=== PATIENT | male | born 1990 | race Caucasian/White ===

== ENCOUNTER → 2020-01-13 11:00 | Outpatient (BNVA) | payer OTHER, SELFPAY | PROVIDERS: Family Provider Nurse Practitioner Family; PCP Nurse Practitioner Family; Visit Provider Nurse Practitioner Family | DX: D64.9 Anemia, unspecified (principal); F41.9 Anxiety disorder, unspecified; F32.9 Major depressive disorder, single episode, unspecified; Z77.011 Contact with and (suspected) exposure to lead; E55.9 Vitamin D deficiency, unspecified; Z13.6 Encounter for screening for cardiovascular disorders; Z79.899 Other long term (current) drug therapy | CPT/HCPCS: 80053; 80061; 81001; 82306; 82607; 82746; 83036; 83655; 84443; 85025 ==

== ENCOUNTER → 2020-10-04 10:13 | Outpatient (BNVA) | payer SELFPAY | PROVIDERS: Family Provider Nurse Practitioner Family; PCP Nurse Practitioner Family; Visit Provider Nurse Practitioner Family | DX: S49.91XA Unspecified injury of right shoulder and upper arm, initial encounter (principal); X58.XXXA Exposure to other specified factors, initial encounter | CPT/HCPCS: 73030 ==

== ENCOUNTER → 2022-10-17 09:17 | Outpatient (BNVA) | payer BC, SELFPAY | PROVIDERS: Family Provider Nurse Practitioner Family; PCP Nurse Practitioner; Visit Provider Nurse Practitioner | DX: K92.0 Hematemesis (principal) | CPT/HCPCS: 80053; 85025 ==

== ENCOUNTER → 2022-11-06 11:35 | Outpatient (BNVA) | payer BC, SELFPAY | PROVIDERS: Family Provider Nurse Practitioner Family; PCP Nurse Practitioner; Visit Provider Nurse Practitioner | DX: K92.0 Hematemesis (principal) | CPT/HCPCS: 85025 ==

== ENCOUNTER 2025-05-20 10:19 | Emergency (ER) | payer SELFPAY ==
[2025-05-20 10:20] VITALS: BP 131/99; PULSE 81; RESP 18; TEMP 36.5; O2SAT 99
--- NOTE | 2025-05-20 10:20 | W.ED.NAVMDI ---
HPI - Nausea/Vomiting/Diarrhea General: Chief complaint: Abdominal Pain Stated complaint: N/V/D History of Present Illness: 34-year-old male with a history of alcohol abuse who presents emergency room with nausea and vomiting for the last several days. He is having epigastric pain and cannot keep anything down. This been going on for 5 or 6 days now. He says he thinks he might of had pancreatitis in the past. No diarrhea. No altered mental status. No focal motor deficits Related Data Home Medications ?Medication ?Instructions ?Recorded ?Confirmed acamprosate 333 mg tablet,delayed 666 mg PO TID 05/20/25 05/20/25 release omeprazole 40 mg capsule,delayed 40 mg PO BID 05/20/25 05/20/25 release sucralfate 100 mg/mL oral 10 ml PO QID 05/20/25 05/20/25 suspension Previous Rx's ?Medication ?Instructions ?Recorded famotidine 40 mg tablet 40 mg PO DAILY #7 tabs 05/20/25 ondansetron 8 mg disintegrating 8 mg PO Q6H #14 tabs 05/20/25 tablet promethazine 25 mg rectal 25 mg [place] Q6H PRN nausea and 05/20/25 suppository vomiting #12 ea sucralfate 1 gram tablet (Carafate) 1 g PO TID 4 weeks #84 tabs 05/20/25 Allergies Allergy/AdvReac Type Severity Reaction Status Date / Time Penicillins Allergy Intermediate rash Verified 08/14/23 08:24 Sulfa (Sulfonamide Allergy ADR-Abdominal Verified 08/14/23 08:24 Antibiotics) Pain Review of Systems Narrative: Constitutional symptoms: Negative except as documented in HPI. Skin symptoms: Negative except as documented in HPI. Eye symptoms: Negative except as documented in HPI. ENMT symptoms: Negative except as documented in HPI. Respiratory symptoms: Negative except as documented in HPI. Cardiovascular symptoms: Negative except as documented in HPI. Gastrointestinal symptoms: Negative except as documented in HPI. Genitourinary symptoms: Negative except as documented in HPI. Musculoskeletal symptoms: Negative except as documented in HPI. Neurologic symptoms: Negative except as documented in HPI. Psychiatric symptoms: Negative except as documented in HPI. Endocrine symptoms: Negative except as documented in HPI. [facility] ED PFSH: Medical History (Updated 05/20/25 @ 12:37 by Ashley Altman MD) Shoulder injury Vitamin D deficiency Fatigue Lead exposure risk assessment, high risk Anemia Family History Unknown No problems noted. Social History Smoking and tobacco/nicotine status: current every day tobacco/nicotine user Quit status (tobacco/nicotine): not considering quitting Second hand smoke exposure: Yes Substance/Drug Use: never Physical Exam Narrative: EXAM NARRATIVE: General: Alert, no acute distress. Skin: Warm, dry. Head: Normocephalic, atraumatic. Neck: Supple, trachea midline. Eye: Extraocular movements are intact. Ears, nose, mouth and throat: Tacky oral mucosa Cardiovascular: Regular, Normal peripheral perfusion. Respiratory: Lungs are clear to auscultation, respirations are non-labored, breath sounds are equal, Symmetrical chest wall expansion. Gastrointestinal: Soft, tender epigastric area, Non distended Musculoskeletal: Normal ROM, no deformity. Neurological: Alert and oriented, No focal neurological deficit observed. Psychiatric: Cooperative, appropriate mood & affect. Course Vital Signs: Vital signs: Vital Signs Temperature 97.7 F 05/20/25 10:20 Pulse Rate 86 05/20/25 12:53 Respiratory Rate 18 05/20/25 12:53 Blood Pressure 141/90 05/20/25 12:53 Pulse Oximetry 99 05/20/25 12:53 Oxygen Delivery Me thod Room Air 05/20/25 10:20 MDM - Nausea/Vomiting/Diarrhea Medical Decision Making Medical decision making Patient's reason for coming to the emergency room: Vomiting and epigastric pain Social determinants: Unemployed I reviewed the patient's medical record. No chronic illness. I reviewed the patient's current home meds Alternate historians: None Differential diagnosis for this patient with nausea and vomiting including but not limited to and based on the above HPI, review of systems and physical exam: Urinary tract infection. Appendicitis. Cholecystitis. Colitis. small bowel obstruction. crohn's flare. pancreatitis. gastritis. peptic ulcer. cyclic vomiting. Viral illness. Influenza. COVID. Orders placed to evaluate differential diagnosis based on the above differential, HPI and physical exam. In this patient with alcoholism would have most concern for alcoholic gastritis or pancreatitis. Lab Review: Laboratory results were reviewed and interpreted by myself the emergency room physician. No leukocytosis. No anemia. No renal failure. Urinalysis was negative for infection and negative for blood. He did peer concentrated. Potassium was low. This is being replaced. CT of the abdomen pelvis with contrast: No acute process. This was reviewed and interpreted by myself the emergency room physician. I also reviewed the radiology report. Reexamination: Patient remained stable. No increased work of breathing. No altered mental status. No focal motor deficits. Assessment and plan: Nausea and vomiting Dehydration Epigastric pain ?IV fluids and IV Zofran. IV Protonix - Discharged home - Discussed plan with patient. Answered any questions. - Evaluation and treatment of this problem were appropriate in the emergency setting. Lab Data 05/20/25 10:40 05/20/25 10:40 Radiology Impressions Abdomen/Pelvis CT 05/20/25 11: IMPRESSION: 1. Portions of the colon are collapsed and mural thickening could be present. Correlate clinically for the possibility of colitis. 2. Hepatic steatosis. 3. No acute disease otherwise identified. Laboratory Results WBC 7.78 10^3/uL (3.29-11.43) 05/20/25 10:40 RBC 5.58 10^6/uL (3.85-5.65) 05/20/25 10:40 Hgb 17.30 g/dL (11.27-16.99) H 05/20/25 10:40 Hct 46.8 % (37-53) 05/20/25 10:40 MCV 83.9 fl (82-101) 05/20/25 10:40 MCH 31.0 pg (27-33) 05/20/25 10:40 MCHC 37.0 g/dL (30-55) 05/20/25 10:40 RDW 12.3 % (12.1-15.1) 05/20/25 10:40 Plt Count 162 10^3/cmm (157-399) 05/20/25 10:40 MPV 9.6 fL (7.4-10.4) 05/20/25 10:40 Neut % (Auto) 83.7 % 05/20/25 10:40 Lymph % (Auto) 11.4 % 05/20/25 10:40 Boundary % (Auto) 4.1 % 05/20/25 10:40 Eos % (Auto) 0.1 % 05/20/25 10:40 Baso % (Auto) 0.3 % 05/20/25 10:40 Neut # (Auto) 6.51 10^3/uL (1.8-7.7) 05/20/25 10:40 Lymph # (Auto) 0.9 10^3/uL (0.8-4.8) 05/20/25 10:40 Boundary # (Auto) 0.3 10^3/uL (0.2-0.9) 05/20/25 10:40 Eos # (Auto) 0.0 10^3/uL (0.0-0.8) 05/20/25 10:40 Baso # (Auto) 0.0 10^3/uL (0.0-0.1) 05/20/25 10:40 Nucleated RBC % (auto) 0 % 05/20/25 10:40 Nucleated RBCs # 0.0 /100WBC 05/20/25 10:40 Sodium 136 mmol/L (136-145) 05/20/25 10:40 Potassium 2.7 mmol/L (3.5-5.1) L* 05/20/25 10:40 Chloride 90 mmol/L (98-107) L 05/20/25 10:40 Carbon Dioxide 30 mmol/L (22-29) H 05/20/25 10:40 Anion Gap 18.7 (5-19) 05/20/25 10:40 BUN 5 mg/dL (6-20) L 05/20/25 10:40 Creatinine 0.7 mg/dL (0.7-1.2) 05/20/25 10:40 GFR Calculation 128.3 mL/min (90-130) 05/20/25 10:40 Glucose 130 mg/dL (65-115) H 05/20/25 10:40 Calculated Osmolality 281 mOsm/kg (285-295) L 05/20/25 10:40 Lactic Acid 2.6 mmol/L (0.5-2.2) H 05/20/25 10:40 Calcium 8.9 mg/dL (8.5-10.5) 05/20/25 10:40 Total Bilirubin 3.0 mg/dL (0.15-1.2) H 05/20/25 10:40 AST 36 U/L (0-40) 05/20/25 10:40 ALT 22 U/L (0-41) 05/20/25 10:40 Alkaline Phosphatase 144 U/L (40-130) H 05/20/25 10:40 C-Reactive Protein 3.0 mg/L (0.0-4.9) 05/20/25 10:40 Total Protein 6.2 g/dL (6.6-8.7) L 05/20/25 10:40 Albumin 4.2 g/dL (3.5-5.2) 05/20/25 10:40 Globulin 2.0 g/dL (1.3-4.6) 05/20/25 10:40 Lipase 36 U/L (13-60) 05/20/25 10:40 Urine Color [place] (Yellow) A 05/20/25 12:50 Urine Appearance Clear (CLEAR) 05/20/25 12:50 Urine pH 8.0 (5-7) A 05/20/25 12:50 Ur Specific [place] 1.073 (1.005-1.030) H 05/20/25 12:50 Urine Protein 1+ (Negative) A 05/20/25 12:50 Urine Glucose (UA) Negative (Normal) 05/20/25 12:50 Urine Ketones Trace (Negative) 05/20/25 12:50 Urine Blood Negative (Negative) 05/20/25 12:50 Urine Nitrate Negative (Negative) 05/20/25 12:50 Urine Bilirubin Negative (Negative) 05/20/25 12:50 Urine Urobilinogen 1.0 mg/dL (Negative) 05/20/25 12:50 Ur Leukocyte Esterase Trace (Negative) A 05/20/25 12:50 Urine RBC 0-2 /hpf (0-2) 05/20/25 12:50 Urine WBC 0-5 /hpf (0-5) 05/20/25 12:50 Ur Squamous Epith Cells 0-5 /hpf (0-5) 05/20/25 12:50 Amorphous Sediment Not Reportable 05/20/25 12:50 Urine Bacteria None seen /hpf (NONE) 05/20/25 12:50 Hyaline Casts 0-4 /lpf H 05/20/25 12:50 Ethyl Alcohol < 10 mg/dL (0-10) 05/20/25 10:40 All radiology interpretation(s) finalized by discharge Discharge Plan Discharge Patient Disposition: Home Clinical Impression: Gastritis Condition: Stable Prescriptions: New promethazine 25 mg suppository 25 mg WV Q6H PRN (Reason: nausea and vomiting) Qty: 12 0RF sucralfate [Carafate] 1 gram tablet 1 g PO TID 28 Days Qty: 84 0RF Rx Instructions: with meals famotidine 40 mg tablet 40 mg PO DAILY Qty: 7 0RF ondansetron 8 mg tablet,disintegrating 8 mg PO Q6H Qty: 14 0RF Rx Instructions: Take 1/2-1 tab every 6 hours as needed for nausea and vomiting No Action sucralfate 100 mg/mL suspension 10 ml PO QID omeprazole 40 mg capsule,delayed release(DR/EC) 40 mg PO BID acamprosate 333 mg tablet,delayed release (DR/EC) 666 mg PO TID Discharge Orders: Discharge ED (Routine); Ordered 05/20/25 Ordered By: Ashley Altman Referrals: BUD Childers FNP [Nurse Practitioner, Family Practice] Alok Degroot FNP [Primary Care Provider, [facility]] Discharge Diet: Advance as tolerated Patient Instructions: Gastritis (ED), Abdominal Pain (ED), Opioid Safety, Pain Management, Patient Portal & Mary Instructions Activity Restrictions/Additional Instructions: Thank you for choosing [facility] for your healthcare needs today. You have been screened and evaluated and felt safe for discharge. Health conditions do change or evolve sometimes and as such it is important that you follow up with your Primary Doctor to be re checked, 3-5 days is a general good time frame for follow up. You are always welcome to return to the ED for re assessment if your symptoms are worsening or you have new concerns Print Language: Bengali Coding Level of Care Code ED Electronic Drafter for Mikie eLon
--- OUTSIDE RECORDS SUMMARY | 2025-05-20 10:24 | XMS_ITS | Data Portability ---
Author Organization [place] [facility] [place], ADMIN Address [address] [place] [id number] Assessment Encounter Date Assessment Date Assessment LastModified by Organization Details LastModified Time 01/11/2024 01/11/2024 33 year old male presents to clinic for consultation regarding iron deficiency and history of gastric ulcers. Today patient reports N/V, diffuse abdominal pain, GERD, dysphagia, constipation vs diarrhea, and melena. Patient reports symptoms have been worse over the past month. Patient states these symptoms have occurred prior in 2019. He underwent EGD and colonoscopy in 2019 and states he had bad stomach ulcers and a hole in his stomach. He states this had to be repaired surgically. He states he has been vomiting bile. He has been taking omeprazole 20mg OTC prn. He states his N/V has not improved with zofran. He states his stools have been black for a long time. He denies iron supplementation or use of pepto bismol. He recently had an injury at work involving impact to the pelvis by a large board. Patient presented to ER on 01/08. CT abdomen showed no acute abnormalities, cholecystectomy. Patient states he has been tested for tick disease including alpha gal which revealed normal results. Patient has a PMH of blood clot, GERD, lead poisoning, iron deficiency requiring iron infusions. He reports FMH of pancreatic cancer in paternal uncle. He drinks a few beers every day. He has been taking ibuprofen 1600mg daily. He denies tobacco or drug use. Impression: 1. N/V, no improvement with zofran 2. Dysphagia 3. GERD, omeprazole 20mg OTC prn 4. Melena 5. Diffuse abdominal pain/tenderness, no acute findings on CT abdomen 01/09/24 6. Altered bowel function, constipation vs diarrhea 7. Previous EGD and colonoscopy 2019, reports not available 8. History of gastric ulcers 9. History of gastric perforation 10. Iron deficiency, normal H&H 11. Postcholecystectomy 12. Family history of pancreatic cancer in paternal uncle 13. Daily alcohol use 14. 1600mg ibuprofen daily Recommendation: 1. Schedule EGD and colonoscopy 2. Check amylase, lipase, and celiac sprue 3. Stool studies 4. Start Omeprazole 40mg BID 5. Start Promethazine 12.5mg QID prn 6. Avoid alcohol and NSAIDs 7. Follow up in GI clinic 2 weeks post endoscopic procedure lea Not available 01/11/2024 15:37:10 10/23/2024 10/23/2024 34-year-old male presents to clinic for ER follow-up. Patient is known to the GI clinic and was previously evaluated in January 2024. Patient presented to the ER on 09/02/2024 and 10/08/2024 with complaints of abdominal pain and vomiting blood. Ultrasound findings, probable mild steatosis, status postcholecystectomy. CT abdomen/pelvis with contrast 09/02/2024: Status postcholecystectomy with development of mild retroperitoneal fat stranding surrounding the adjacent duodenum and pancreas suggesting edema versus inflammatory infiltrate, this is nonspecific and could be secondary to mild pancreatitis or peptic ulcer disease, scattered nonspecific air-fluid levels throughout the small bowel probably reflects ileus and/or gastroenteritis. Lab studies 10/08/2024: Magnesium 2.0, CRP negative, lipase 13, sodium 142, potassium 3.3, BUN 7, creatinine 0.98, albumin 4.6, bilirubin total 0.8, alk phos 102, AST 28, ALT 18, ESR 3, PT 13.7, INR 1.1, WBC 5.9, RBC 5.4, hemoglobin 8.9, hematocrit 24.0, MCV 0.5, platelet count 233 Today patient reports symptoms of dysphagia, nausea, vomiting, right upper quadrant pain, melena and chronic diarrhea. He states he has nausea and vomiting that is worse in the morning but continues throughout the day. He is currently taking omeprazole 40 mg twice daily. He states he was prescribed Carafate liquid however has not started this medication. I advised him to take the Carafate 1 hour before or 2 hours prior to his other medications. Patient does not recall if his dysphagia improved with his previous esophageal dilation in January 2024. He has a history of alcohol abuse. He is currently taking acamprosate and has reduced his alcohol intake. Patient has a PMH of blood clot, GERD, lead poisoning, iron deficiency requiring iron infusions. He reports FMH of pancreatic cancer in paternal uncle. He drinks a few beers every day. He has been taking ibuprofen 1600mg daily. He denies tobacco or drug use. EGD 01/25/2024: Grade B erosive esophagitis. Distal esophageal acid peptic stricture. 20 mm TTS balloon dilation. Moderate nonerosive gastritis. Otherwise normal exam to the duodenum. Pathology: GE junction biopsy revealed reactive squamocolumnar mucosa with focal atypia, negative for intestinal metaplasia. Stomach biopsy negative for H. pylori. Duodenal biopsy unremarkable. Colonoscopy 01/25/2024: Small internal hemorrhoids. Otherwise normal exam to the TI. Pathology: Random colon biopsy unremarkable. TI biopsy unremarkable Impression: 1. Dysphagia 2. GERD currently treated with omeprazole 40 mg twice daily 3. Right upper quadrant pain 4. Nausea and vomiting 5. Melena 6. Chronic unexplained diarrhea 7. History of gastric ulcers and gastric perforation 8. Previous EGD/colonoscopy 01/25/2024 9. Family history of pancreatic cancer in paternal uncle 10. Postcholecystectomy 11. History of alcohol abuse Recommendation: 1. Schedule EGD and EUS for further evaluation of dysphagia, nausea, vomiting, right upper quadrant pain and postcholecystectomy 2. Order stool studies 3. Start Carafate as prescribed by PCP 4. Start Bentyl 10 mg 3 times daily as needed for abdominal pain 5. Avoid alcohol 6. Avoid NSAIDs 7. Follow-up in GI clinic 2 weeks post endoscopic procedure [email or web address] Not available 10/24/2024 10:52:22 Plan of Treatment Reminders Order Date Submit Date Provider Last Modified By Organization Details Last Modified Time Details Appointments None recorded. Lab C diff DNA, qual, PCR [email or web address] (Lab)_do Not Use, [address], [place], [address], 5 11:22:43 culture, stool [address] (Lab)_do Not Use, [address], [place], [address], 5 11:22:43 O&P (ova & parasites), stool [address] (Lab)_do Not Use, [address], [place], [address], 5 12:07:55 wbc, stool 2024 025 [facility] (Lab)_do Not Use, [address], [place], [address], 5 10:05:36 wbc, stool [address] (Lab)_do Not Use, [address], [place], [address], 4 14:41:12 O&P (ova & parasites), stool [address] (Lab)_do Not Use, [address], [place], [address], 4 14:41:12 C diff DNA, qual, PCR [address] (Lab)_do Not Use, [address], [place], [address], 4 11:54:25 culture, stool [address] (Lab)_do Not Use, [address], [place], [address], 4 11:54:25 amylase + lipase, serum [address] (Lab)_do Not Use, [address], [place], [place], [address], 4 09:20:27 celiac disease comprehensi ve panel, serum [address] (Lab)_do Not Use, [address], [place], [place], [address], 4 10:24:56 Referral None recorded. Procedures upper endoscopy procedure (EGD) (PROC) - Possible Procedures: Take biopsies if indicated, possible variceal banding, possible argon plasma coagulation , possible esophageal dilation, possible snare polypectomy . Pre-Procedu re Orders: 1. Start 20 gauge or larger heparin/jonathon ine lock, may use 0.5 ml of 1% lidocaine or topical anesthetic cream. Start IVF of Lactated Ringers at 80 ML/HR. Post Procedure: 1. Vitals every 5 minutes times 3, then every 30 minutes until discharge. 2. Remove IV when tolerating liquids well. 3. Discharge when meets criteria. 4. Schedule Clinic Follow up in 3 weeks CPT: 76882, 40583, 78886, 94982 [address] [facility], [address], [place], [address], 5 15:53:55 upper endoscopy procedure (EGD) (PROC) - Possible Procedures: Take biopsies if indicated, possible variceal banding, possible argon plasma coagulation , possible esophageal dilation, possible snare polypectomy . Pre-Procedu re Orders: 1. Start 20 gauge or larger heparin/jonathon ine lock, may use 0.5 ml of 1% lidocaine or topical anesthetic cream. Start IVF of Lactated Ringers at 80 ML/HR. Post Procedure: 1. Vitals every 5 minutes times 3, then every 30 minutes until discharge. 2. Remove IV when tolerating liquids well. 3. Discharge when meets criteria. 4. Schedule Clinic Follow up in 3 weeks CPT: 46969, 34671, 15643, 37438 2023 024 [facility], [address], [place], [address], 4 11:41:16 colonoscopy procedure (PROC) - IV Lock, Initiate Take biopsies if indicated, possible hemorroidal banding, possible argon plasma coagulation , possible hot/cold snare polypectomy , possible dilation of stricture. CPT: 18925, 83518, 70588,76011 2023 024 [facility], [address], [place], [address], 4 11:41:41 Surgeries surgical endoscopic ultrasound (SURG) 2024 025 ISABELA Not available 5 11:35:18 Imaging None recorded. Medication Orders dicyclomine 10 mg capsule 2024 025 [place] [employer] [facility] [place], [place], [address] [place], [address], 5 11:03:43 promethazin e 12.5 mg tablet 2023 024 [email or web address] [employer] [facility] [place], [address] [place], [address], 4 13:11:50 Suprep Bowel Prep Kit 17.5 gram-3.13 gram-1.6 gram oral solution 2023 024 [facility] [employer] [facility] [place] [place], [address] [place], [address], 4 13:11:55 omeprazole 40 mg capsule,del ayed release 2023 024 [place] [employer] [facility] [place], [address] [place], [address], 4 16:24:01 Patient TargetsNo targets recorded. Patient InstructionsNo instructions recorded. Reason for Referral None Reported. Results Created Date Observation Date Name Description Value Unit Range Abnormal Flag Note LastModifiedBy Organization Detail LastModifiedTime 01/11/20 24 01/11/2024 AMYLA SE LEVEL amylase 37 U/L 26-114 Not Available [facility] (Lab)_do Not Use [address], [place], [address], 01/11/2024 18:01:23 01/11/20 24 01/11/2024 LIPAS E LEVEL lipase 28 U/L 17-76 Not Available [facility] (Lab)_do Not Use [address], [place], [address], 01/11/2024 18:01:24 01/11/20 24 01/20/2024 JUSTINE C DISEA SE PANEL - SEND OUT TO interpretati on 1 cq SEE BELOW no reference range No serol ogica l evide nce of justine c disea se. tTG IgA may madyson lize in indiv idual s with justine c disea se who maint ain a glute n-gege e diet. Consi gaviota HLA DQ2 and DQ8 testi ng to rule out justine c disea se. Justine c disea se is extre jaswant rare in the absen ce of DQ2 or DQ8. Not Available [facility] (Lab)_do Not Use [address], [place], [address], 01/20/2024 21:01:22 01/11/20 24 01/20/2024 JUSTINE C DISEA SE PANEL - SEND OUT TO ttgigacq <1.0 unit/ mL <15.0 no reference range Value Inter preta tion <15.0 Antib candie not detec ijeoma > or = 15.0 Antib candie detec ijeoma Not Available [facility] (Lab)_do Not Use [address], [place], [address], 01/20/2024 21:01:22 01/11/20 24 01/20/2024 UJSTINE C DISEA SE PANEL - SEND OUT TO igacq 80 mg/dL 47-310 no reference range Lab test perfo rmed by: Lab [place]: [facility] [address] [facility] [place] Mali Raza MD PhD Not Available [facility] (Lab)_do Not Use [address], [place], [address], 01/20/2024 21:01:22 10/30/19 25 10/29/2024 LEUKO CYTES FECES QL W/STA IN WBC feces wstain RARE none seen abnormal Not Available [facility] (Lab)_do Not Use [address], [place], [address], 10/29/2024 10:05:36 10/30/19 25 10/29/2024 LEUKO CYTES FECES QL W/STA IN yeast feces PRESEN T none seen abnormal Not Available [facility] (Lab)_do Not Use [address], [place], [address], 10/29/2024 10:05:36 10/30/19 25 11/01/2024 C STOOL final Madyson l enter ic ingrid 1 day No Enter ic Patho gens [place] ijeoma Not Available [facility] (Lab)_do Not Use [address], [place], [address], 11/01/2024 17:51:41 10/30/19 25 11/01/2024 C STOOL stool culture . Bacte riolo gy PROCE DURE: Stool Cultu re [*1] ACCES CLYDE: 850-2 5-127 -0032 4 SOURC E: Feces BODY SITE: FREE TEXT SOURC E: ORDER ING PHYSI LASHAWN: SHELT ON, KRIST IN PA COLLE CTED DATE/ TIME: 06:56 CDT Start Date/ Time: 07:57 CDT FI NAL REPOR TS Final Repor t [] Verif ied Date/ Time/ Perso nnel: 2024 16:51 CDT Carolina Howard visor , Lab Madyson l enter ic ingrid 1 day No Enter ic Patho gens [place] ijeoma Perfo rming Locat ions *1: This test was perfo rmed at: [facility] Lab, [address], [facility] [place], [address] - , , [phone] Not Available [facility] (Lab)_do Not Use [address], [place], [address], 11/01/2024 17:51:43 Result Notes None recorded. Problems Name Problem SNOMED Code Status Onset Date Resolution Date Notes Provider Name and Address Organization Details Recorded Time Gastroesophage al reflux disease without esophagitis 056503288 Active 2023 KEATON BROWN [address], [place], [address], [facility] [place] 4 15:18:33 Nausea and vomiting 80205768 Active 2023 KEATON BROWN [address] [facility], [place], [address], [place] [facility] [place] 4 15:18:59 Abdominal pain 10985538 Active 2024 KEATON BROWN [address], [place], [address], [facility] [place] 5 16:27:16 Yeast detected 823296197 Active 2024 KEATON BROWN [address] [facility], [place], [address], [place] [facility] [place] 5 20:37:51 Notes:Some problems listed i n Document: #[id number] could not be added to this patient's chart. Please review this document and add these problems to the patient's chart manually as needed. Problem Notes None recorded. Procedures Surgical History Date Name Laterality Status Provider Name and Address Organization Details Recorded Time 2024 esophagogastroduodenoscopy completed Talon Kwon RN [address] 5 13:49:49 2024 SURGICAL ENDOSCOPIC ULTRASOUND (SURG) completed [facility] [place] 5 13:49:34 Cholecystectomy completed DAPHNE Epps [place] 4 15:02:09 Colonoscopy completed DAPHNE Epps [place] 4 15:02:14 esophagogastroduodenoscopy completed DAPHNE Epps [place] 4 15:02:19 Imaging Results None recorded. Procedure Notes None recorded. Medical Equipment None Reported. Allergies Allergen ID Allergen Name Allergen Category Reaction Reaction Severity Criticality Documentation Date Start Date Code Code System Note Provider Name and Address Organization Details Recorded Time 690781 Product containin g penicilli n (product) medicatio n Not available Not available Not available 01/11/2024 88378 8001 SNOMED DAPHNE Epps [address] 4 14:45:41 406443 Substance with sulfonami de structure and antibacte rial mechanism of action (substanc e) medicatio n Not available Not available Not available 01/11/2024 18763 8003 SNOMED DAPHNE Epps [address] 4 14:45:41 535940 pineapple extract food Not available Not available Not available 01/11/2024 89277 74 RxNorm DAPHNE Epps [address] 4 14:45:41 Medications Name Sig Start Date Stop Date Status Note LastModified by Organization Details LastModified Time sucralfate 100 mg/mL oral suspension TAKE 10 ML BY MOUTH 4 TIMES DAILY (BEFORE meals AND ONCE A NIGHT AT BEDTIME) FOR 10 DAYS 10/23 completed Not Available Not Available Not Available promethazin e 12.5 mg tablet TAKE 1 TABLET BY MOUTH 4 TIMES DAILY FOR 7 DAYS 02/12 completed Not Available Not Available Not Available naltrexone 50 mg tablet TAKE 1 TABLET BY MOUTH DAILY 10/23 completed Not Available Not Available Not Available omeprazole 40 mg capsule,del ayed release TAKE 1 CAPSULE BY MOUTH TWICE DAILY active Not Available Not Available No t Available Diflucan 100 mg tablet Take 1 tablet every day by oral route. 2024 active Not Available Not Available Not Avai lable oseltamivir 75 mg capsule 01/10 completed Not Available Not Available Not Available folic acid 1 mg tablet TAKE 1 TABLET BY MOUTH DAILY 10/23 completed Not Available Not Available Not Available ergocalcife rol (vitamin D2) 1,250 mcg (50,000 unit) capsule TAKE 1 CAPSULE BY MOUTH WEEKLY FOR 8 WEEKS, THEN decrease TO TWICE A month( ON AND 15 EACH MONTH) 10/23 completed Not Available Not Available Not Available ondansetron 4 mg disintegrat ing tablet DISSOLVE 2 TABLETS ON TONGUE AND SWALLOW WITH SALIVA 3 TIMES DAILY NEEDED active Not Available Not Available No t Available doxycycline hyclate 100 mg tablet Take 1 tablet twice a day by oral route for 14 days. 02/12 completed Not Available Not Available Not Available dicyclomine 10 mg capsule Take 1 capsule 3 times a day by oral route as needed. 2024 active Not Available Not Available Not Avai lable omeprazole magnesium 20 mg tablet,sanjuana yed release Take 1 tablet every day by oral route. 10/23 completed Not Available Not Available Not Available acamprosate 333 mg tablet,sanjuana yed release TAKE 2 TABLETS BY MOUTH 3 TIMES DAILY active Not Available Not Available No t Available sodium,pota ssium,mag sulfates 17.5 gram-3.13 gram-1.6 gram oral soln Take 177 mL BY MOUTH TWICE DAILY as directed for 1 day. 02/12 completed Not Available Not Available Not Available Vitals Date Recorded Body height Body mass index (BMI) Body weight Oxygen saturation Heart rate Systolic And Diastolic Provider Name and Address Organization Details Last Updated DateTime 5 172.72 cm 27 kg/m2 55331.9 3 g 97 % 78 /min 135/84 mm[Hg] Maria Elena Kwon RN [place] [facility] [place] 5 14:36:37 Date Recorded Body height Body mass index (BMI) Body weight Oxygen saturation Heart rate Systolic And Diastolic Provider Name and Address Organization Details Last Updated DateTime 4 172.72 cm 26.4 kg/m2 39406.7 1 g 98 % 99 /min 154/106 mm[Hg] Maria Elena Kwon RN [address] 15:01:06 Social History Question Answer Notes LastModified by Organizat ion Details LastModified Time Tobacco Smoking Status Never Smoker Maria Elena Kwon RN [facility], [address] 01/11/2024 15:02:02 What Is Your Level Of Caffeine Consumption? Moderate Information not available 01/11/2024 How Much Tobacco Do You Chew? 1/day Information not available 01/11/2024 What Was The Date Of Your Most Recent Tobacco Screening? 10/23/2024 Information not available 10/23/2024 Has Tobacco Cessation Counseling Been Provided? No Information not available 01/11/2024 Sex: Unknown Functional Status Question Answer Note LastModified by Organizat ion Details LastModified Time How many times per week do you consume alcohol? 1-2 times per week Information not available 01/11/2024 Do you use any illicit or recreational drugs? No Information not available 01/11/2024 Do you or have you ever used any other forms of tobacco or nicotine? Yes Information not available 01/11/2024 What is your level of alcohol consumption? Occasional Information not available 01/11/2024 Do you or have you ever used smokeless tobacco? Currently chews tobacco Information not available 01/11/2024 Do you or have you ever used e-cigarettes or vape? Never used electronic cigarettes Information not available 01/11/2024 Mental Status None recorded. Family History Nothing Reported. Medical History No medical history recorded. Past Encounters Encounter ID Performer Location Encounter Start Date Encounter Closed Date Diagnosis/Indication Diagnosis SNOMED-CT Code Diagnosis ICD10 Code Diagnosis IMO Codes Diagnosis Note [id number] KEATNO BROWN [facility] [address] [place] [id number] 01/11/2024 14:40:42 01/14/2024 10:06:01 Gastroesophageal reflux disease without esophagitis 738190781 K21.9 Nausea and vomiting 1693 1999 R11.2 Dysphagia 19430778 R13.1 0 Altered billy wel function 68490696 R19.4 Epigastric pain 79090170 R10.13 Diarrhea 75802390 R19.7 [id number] KEATON BROWN [facility] [address] [place] [address] 02/13/2024 16:18:16 02/15/2024 12:22:58 Gastroesophageal reflux disease without esophagitis 698055155 K21.9 Nausea and vomiting 1691999 R11.2 [id number] KEATON BROWN [facility] [address] [place] [id number] 10/23/2024 14:23:15 10/28/2024 13:18:47 Nausea and vomiting 28816150 R11.2 [id number] Hematemesis 8870961 K92. 0 [id number] Dysphagia 95065097 R13.1 0 [id number] Right uppe r quadrant pain 174680156 R10.11 839903 History of cholecystectomy 857176904 Z90.49 168259 Chronic diarrhea 4064075 09 K52.9 08019 Abdominal pain 78180852 R10.9 43940805 Health Concerns Section Related Observation LastModified by Organization Detai ls LastModified Time None Recorded Concern Status LastModified by Organization Details LastModified Time None Recorded Advance Directives Directive None Recorded Payers Insurance Date Sequence Insurance Name Policy Number Policy Hairston Covered Member ID Hairston Member ID Guarantor Name 11/15/2024 2 [employer] [place] [place] (MEDICA[place] REPLACEMENT - HMO) [id number] Corky Dimas [id number] Corky Dimas 11/15/2024 3 [place] Corky Dimas [id number] Corky Dimas 11/15/2024 1 [employer] [place] Corky Dimas [id number] Corky Dimas Notes Date Note Type Note Provider Name and Address Organization Details Recorded Time 4 text/html 33 year old male presents to clinic for consultation regarding iron deficiency and history of gastric ulcers. Today patient reports N/V, diffuse abdominal pain, GERD, dysphagia, constipation vs diarrhea, and melena. Patient reports symptoms have been worse over the past month. Patient states these symptoms have occurred prior in 2019. He underwent EGD and colonoscopy in 2019 and states he had bad stomach ulcers and a hole in his stomach. He states this had to be repaired surgically. He states he has been vomiting bile. He has been taking omeprazole 20mg OTC prn. He states his N/V has not improved with zofran. He states his stools have been black for a long time. He denies iron supplementation or use of pepto bismol. He recently had an injury at work involving impact to the pelvis by a large board. Patient presented to ER on 01/08. CT abdomen showed no acute abnormalities, cholecystectomy. Patient states he has been tested for tick disease including alpha gal which revealed normal results. Patient has a PMH of blood clot, GERD, lead poisoning, iron deficiency requiring iron infusions. He reports FMH of pancreatic cancer in paternal uncle. He drinks a few beers every day. He has been taking ibuprofen 1600mg daily. He denies tobacco or drug use. Impression:1. N/V, no improvement with zofran2. Dysphagia3. GERD, omeprazole 20mg OTC prn4. Melena5. Diffuse abdominal pain/tenderness, no acute findings on CT abdomen . Altered bowel function, constipation vs diarrhea7. Previous EGD and colonoscopy 2019, reports not available8. History of gastric ulcers9. History of gastric [id number]. Iron deficiency, normal H&H11. [id number]. Family history of pancreatic cancer in paternal uncle13. Daily alcohol use14. 1600mg ibuprofen daily Recommendation:1. Schedule EGD and colonoscopy2. Check amylase, lipase, and celiac sprue3. Stool studies4. Start Omeprazole 40mg BID5. Start Promethazine 12.5mg QID prn6. Avoid alcohol and NSAIDs7. Follow up in GI clinic 2 weeks post endoscopic procedure KEATON BROWN [facility], [place], [address], [facility] [place] 01/11/2024 15:40:26 5 text/html 34-year-old male presents to clinic for ER follow-up. Patient is known to the GI clinic and was previously evaluated in January 2024. Patient presented to the ER on 09/02/2024 and 10/08/2024 with complaints of abdominal pain and vomiting blood. Ultrasound findings, probable mild steatosis, status postcholecystectomy. CT abdomen/pelvis with contrast 09/02/2024: Status postcholecystectomy with development of mild retroperitoneal fat stranding surrounding the adjacent duodenum and pancreas suggesting edema versus inflammatory infiltrate, this is nonspecific and could be secondary to mild pancreatitis or peptic ulcer disease, scattered nonspecific air-fluid levels throughout the small bowel probably reflects ileus and/or gastroenteritis. Lab studies 10/08/2024: Magnesium 2.0, CRP negative, lipase 13, sodium 142, potassium 3.3, BUN 7, creatinine 0.98, albumin 4.6, bilirubin total 0.8, alk phos 102, AST 28, ALT 18, ESR 3, PT 13.7, INR 1.1, WBC 5.9, RBC 5.4, hemoglobin 8.9, hematocrit 24.0, MCV 0.5, platelet count 233 Today patient reports symptoms of dysphagia, nausea, vomiting, right upper quadrant pain, melena and chronic diarrhea. He states he has nausea and vomiting that is worse in the morning but continues throughout the day. He is currently taking omeprazole 40 mg twice daily. He states he was prescribed Carafate liquid however has not started this medication. I advised him to take the Carafate 1 hour before or 2 hours prior to his other medications. Patient does not recall if his dysphagia improved with his previous esophageal dilation in January 2024. He has a history of alcohol abuse. He is currently taking acamprosate and has reduced his alcohol intake. Patient has a PMH of blood clot, GERD, lead poisoning, iron deficiency requiring iron infusions. He reports FMH of pancreatic cancer in paternal uncle. He drinks a few beers every day. He has been taking ibuprofen 1600mg daily. He denies tobacco or drug use. EGD 01/25/2024: Grade B erosive esophagitis. Distal esophageal acid peptic stricture. 20 mm TTS balloon dilation. Moderate nonerosive gastritis. Otherwise normal exam to the duodenum.Pathology: GE junction biopsy revealed reactive squamocolumnar mucosa with focal atypia, negative for intestinal metaplasia. Stomach biopsy negative for H. pylori. Duodenal biopsy unremarkable.Colonoscopy 01/25/2024: Small internal hemorrhoids. Otherwise normal exam to the TI.Pathology: Random colon biopsy unremarkable. TI biopsy unremarkable Impression:1. Dysphagia2. GERD currently treated with omeprazole 40 mg twice daily3. Right upper quadrant pain4. Nausea and vomiting5. Melena6. Chronic unexplained diarrhea7. History of gastric ulcers and gastric perforation8. Previous EGD/colonoscopy . Family history of pancreatic cancer in paternal uncle10. [id number]. History of alcohol abuseRecommendation:1. Schedule EGD and EUS for further evaluation of dysphagia, nausea, vomiting, right upper quadrant pain and postcholecystectomy2. Order stool studies3. Start Carafate as prescribed by PCP4. Start Bentyl 10 mg 3 times daily as needed for abdominal pain5. Avoid alcohol6. Avoid NSAIDs7. Follow-up in GI clinic 2 weeks post endoscopic procedure KEATON BROWN [address] [place], [address], [facility] [place] 10/24/2024 10:52:58
--- OUTSIDE RECORDS SUMMARY | 2025-05-20 10:24 | XMS_ITS | Encounter Summary ---
Author Organization [facility] Address [address] [place] [address] Care Team Providers Care Sales Center Manager Name Role Phone Non-Staff, Physician Primary Care Provider Unava ilable Encounter Details Date Type Department Care Team (Latest Contact Info) Description 08/05/2004 Outpatient Historical [facility] Medicine [place] 104 [facility] [address] [place] [phone] Ronald Woodall MD [address] [facility] [address] [place] [phone] ATTN DEFICIT NONHYPERACT (Primary Dx) Social History Tobacco Use Types Packs/Day Years Used Date Smoking Tobacco: Never Assessed Sex and Gender Information Value Date Recorded Sex Assigned at Not on file Legal Sex Male 5:51 AM SPECIAL FORCES OFFICER Gender Identity Not on file Sexual Orientation Not on file documented as of this encounter Plan of Treatment Not on file documented as of this encounter Visit Diagnoses Diagnosis 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
--- OUTSIDE RECORDS SUMMARY | 2025-05-20 10:24 | XMS_ITS | Encounter Summary ---
Author Organization [facility] Address [address] [place] [address] Care Team Providers Care Tenon Machine Operator Name Role Phone Non-Staff, Physician Primary Care Provider Unava ilable Encounter Details Date Type Department Care Team (Latest Contact Info) Description 02/10/2002 Outpatient Historical [facility] Family Medicine [place] [address] [phone] Ronald Woodall MD [address] [phone] ALLERGY, UNSPECIFIED (Primary Dx) Social History Tobacco Use Types Packs/Day Years Used Date Smoking Tobacco: Never Assessed Sex and Gender Information Value Date Recorded Sex Assigned at Not on file Legal Sex Male 5:51 AM MANAGER FURNITURE Gender Identity Not on file Sexual Orientation Not on file documented as of this encounter Plan of Treatment Not on file documented as of this encounter Visit Diagnoses Diagnosis Allergy, unspecified not elsewhere classified- Primary documented in this encounter Care Teams Tenon Machine Operator Relationship Specialty Start Date End Date Non-Staff, Physician NO ADDRESS ON FILE PCP - General 07/17/07 08/14/20 documented as of this encounter
--- OUTSIDE RECORDS SUMMARY | 2025-05-20 10:24 | XMS_ITS | Encounter Summary ---
Author Organization [facility] Address [address] [place] [address] Care Team Providers Care Video Software Engineer Name Role Phone Non-Staff, Physician Primary Care Provider Unava ilable Encounter Details Date Type Department Care Team (Latest Contact Info) Description 12/17/2001 Outpatient Historical [facility] Family Medicine [place] 104 [facility] 60 [place] [phone] Ronald Woodall MD [address] [phone] ALLERGY, UNSPECIFIED (Primary Dx) Social History Tobacco Use Types Packs/Day Years Used Date Smoking Tobacco: Never Assessed Sex and Gender Information Value Date Recorded Sex Assigned at Not on file Legal Sex Male 5:51 AM SODA DRIER FEEDER Gender Identity Not on file Sexual Orientation Not on file documented as of this encounter Plan of Treatment Not on file documented as of this encounter Visit Diagnoses Diagnosis Allergy, unspecified not elsewhere classified- Primary documented in this encounter Care Teams Video Software Engineer Relationship Specialty Start Date End Date Non-Staff, Physician NO ADDRESS ON FILE PCP - General 07/17/07 08/14/20 documented as of this encounter
--- OUTSIDE RECORDS SUMMARY | 2025-05-20 10:24 | XMS_ITS | Encounter Summary ---
Author Organization [facility] Address [address] [place] [address] Care Team Providers Care Data Warehousing Manager Name Role Phone Non-Staff, Physician Primary Care Provider Unava ilable Encounter Details Date Type Department Care Team (Latest Contact Info) Description 02/08/2004 Outpatient Historical [facility] Family Medicine- [address] [place] [address] Cristi Wilson DO NO ADDRESS ON FILE HEADACHE (Primary Dx); ACNE NEC; VACCINE FOR TETANUS/DIPHTERIA Social History Tobacco Use Types Packs/Day Years Used Date Smoking Tobacco: Never Assessed Sex and Gender Information Value Date Recorded Sex Assigned at Not on file Legal Sex Male 5:51 AM RECRUITING SCHEDULER Gender Identity Not on file Sexual Orientation Not on file documented as of this encounter Plan of Treatment Not on file documented as of this encounter Visit Diagnoses Diagnosis Headache(784.0)- Primary Headache Other acne Need for prophylactic vaccination with tetanus-diphtheria (Td) documented in this encounter Care Teams Data Warehousing Manager Relationship Specialty Start Date End Date Non-Staff, Physician NO ADDRESS ON FILE PCP - General 07/17/07 08/14/20 documented as of this encounter
--- OUTSIDE RECORDS SUMMARY | 2025-05-20 10:24 | XMS_ITS | Encounter Summary ---
Author Organization [facility] Address [address] [place] [address] Care Team Providers Care Shipping Clerk Crating Name Role Phone Non-Staff, Physician Primary Care Provider Unava ilable Encounter Details Date Type Department Care Team (Latest Contact Info) Description 03/19/2003 Outpatient Historical [facility] Medicine [address] [phone] Julia Pavon MD NO ADDRESS ON FILE JOINT PAIN-L/LEG (Primary Dx) Social History Tobacco Use Types Packs/Day Years Used Date Smoking Tobacco: Never Assessed Sex and Gender Information Value Date Recorded Sex Assigned at Not on file Legal Sex Male 5:51 AM HISTORIC SITES 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
--- OUTSIDE RECORDS SUMMARY | 2025-05-20 10:24 | XMS_ITS | Encounter Summary ---
Author Organization [facility] Address [address] [place] [address] Care Team Providers Care Tank Processor Name Role Phone Non-Staff, Physician Primary Care Provider Unava ilable Encounter Details Date Type Department Care Team (Late st Contact Info) Description 09/16/2007 Outpatient Historical [facility] [address] [place] [address] AMBULANCE, [facility] Social History Tobacco Use Types Packs/Day Years Used Date Smoking Tobacco: Never Assessed Sex and Gender Information Value Date Recorded Sex Assigned at Not on file Legal Sex Male 5:51 AM BRAND AMBASSADOR PROMOTIONAL MODEL Gender Identity Not on file Sexual Orientation Not on file documented as of this encounter Plan of Treatment Not on file documented as of this encounter Visit Diagnoses Not on filedocumented in this encounter Care Teams Tank Processor Relationship Specialty Start Date End Date Non-Staff, Physician NO ADDRESS ON FILE PCP - General 07/17/07 08/14/20 documented as of this encounter
--- OUTSIDE RECORDS SUMMARY | 2025-05-20 10:24 | XMS_ITS | Encounter Summary ---
Author Organization [facility] Address [address] [place] [address] Care Team Providers Care Professional Bass Fisher Name Role Phone Non-Staff, Physician Primary Care Provider Unava ilable Encounter Details Date Type Department Care Team (Latest Contact Info) Description 04/17/2002 Outpatient Historical [facility] Medicine [address] [phone] Julia Pavon MD NO ADDRESS ON FILE ALLERGY, UNSPECIFIED (Primary Dx) Social History Tobacco Use Types Packs/Day Years Used Date Smoking Tobacco: Never Assessed Sex and Gender Information Value Date Recorded Sex Assigned at Not on file Legal Sex Male 5:51 AM HEADING PINNER Gender Identity Not on file Sexual Orientation Not on file documented as of this encounter Plan of Treatment Not on file documented as of this encounter Visit Diagnoses Diagnosis Allergy, unspecified not elsewhere classified- Primary documented in this encounter Care Teams Professional Bass Fisher Relationship Specialty Start Date End Date Non-Staff, Physician NO ADDRESS ON FILE PCP - General 07/17/07 08/14/20 documented as of this encounter
--- OUTSIDE RECORDS SUMMARY | 2025-05-20 10:24 | XMS_ITS | Encounter Summary ---
Author Organization [facility] Address [address] [place] [address] Care Team Providers Care Obstetrics Teacher Name Role Phone Non-Staff, Physician Primary Care Provider Unava ilable Encounter Details Date Type Department Care Team (Latest Contact Info) Description 02/15/2006 Outpatient [facility] Medicine [address] [phone] Melecio Lau NP NO ADDRESS ON FILE Unspecified Site of Sprain and Strain (Primary Dx); Other Specified Congenital Anomaly of Skin Social History Tobacco Use Types Packs/Day Years Used Date Smoking Tobacco: Never Assessed Sex and Gender Information Value Date Recorded Sex Assigned at Not on file Legal Sex Male 5:51 AM MUFFLER TENDER Gender Identity Not on file Sexual Orientation Not on file documented as of this encounter Plan of Treatment Not on file documented as of this encounter Visit Diagnoses Diagnosis Unspecified site of sprain and strain- Primary Other specified congenital anomaly of skin documented in this encounter Care Teams Obstetrics Teacher Relationship Specialty Start Date End Date Non-Staff, Physician NO ADDRESS ON FILE PCP - General 07/17/07 08/14/20 documented as of this encounter
--- OUTSIDE RECORDS SUMMARY | 2025-05-20 10:24 | XMS_ITS | Encounter Summary ---
Author Organization [facility] Address [address] [place] [address] Care Team Providers Care Gastrointestinal Technician Name Role Phone Non-Staff, Physician Primary Care Provider Unava ilable Encounter Details Date Type Department Care Team (Latest Contact Info) Description 12/06/2001 Outpatient Historical [facility] Family Medicine [place] [address] [phone] Ronald Woodall MD [address] [phone] ALLERGY, UNSPECIFIED (Primary Dx) Social History Tobacco Use Types Packs/Day Years Used Date Smoking Tobacco: Never Assessed Sex and Gender Information Value Date Recorded Sex Assigned at Not on file Legal Sex Male 5:51 AM FIELD SERVICE MANAGER Gender Identity Not on file Sexual Orientation Not on file documented as of this encounter Plan of Treatment Not on file documented as of this encounter Visit Diagnoses Diagnosis Allergy, unspecified not elsewhere classified- Primary documented in this encounter Care Teams Gastrointestinal Technician Relationship Specialty Start Date End Date Non-Staff, Physician NO ADDRESS ON FILE PCP - General 07/17/07 08/14/20 documented as of this encounter
--- OUTSIDE RECORDS SUMMARY | 2025-05-20 10:24 | XMS_ITS | Encounter Summary ---
Author Organization [facility] Address [address] [facility] [place] [address] Care Team Providers Care Supervisor Pairing And Inspecting Name Role Phone Non-Staff, Physician Primary Care Provider Unava ilable Encounter Details Date Type Department Care Team (Latest Contact Info) Description 08/12/2003 Outpatient Historical [facility] Family Medicine- [address] [place] [address] Cristi Wilson, NO ADDRESS ON FILE PAIN IN OR AROUND EYE (Primary Dx) Social History Tobacco Use Types Packs/Day Years Used Date Smoking Tobacco: Never Assessed Sex and Gender Information Value Date Recorded Sex Assigned at Not on file Legal Sex Male 5:51 AM SENIOR 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
--- OUTSIDE RECORDS SUMMARY | 2025-05-20 10:24 | XMS_ITS | Encounter Summary ---
Author Organization [facility] Address [address] [place] [address] Care Team Providers Care Special Certificate Dictator Name Role Phone Non-Staff, Physician Primary Care Provider Unava ilable Encounter Details Date Type Department Care Team (Latest Contact Info) Description 01/17/2002 Outpatient Historical [facility] Medicine [address] [phone] Cristi Wilson DO NO ADDRESS ON FILE ALLERGY, UNSPECIFIED (Primary Dx) Social History Tobacco Use Types Packs/Day Years Used Date Smoking Tobacco: Never Assessed Sex and Gender Information Value Date Recorded Sex Assigned at Not on file Legal Sex Male 5:51 AM MODERATE NEEDS TEACHER Gender Identity Not on file Sexual Orientation Not on file documented as of this encounter Plan of Treatment Not on file documented as of this encounter Visit Diagnoses Diagnosis Allergy, unspecified not elsewhere classified- Primary documented in this encounter Care Teams Special Certificate Dictator Relationship Specialty Start Date End Date Non-Staff, Physician NO ADDRESS ON FILE PCP - General 07/17/07 08/14/20 documented as of this encounter
--- OUTSIDE RECORDS SUMMARY | 2025-05-20 10:24 | XMS_ITS | Encounter Summary ---
Author Organization [facility] Address [address] [place] [address] Care Team Providers Care Heritage Consultant Name Role Phone Non-Staff, Physician Primary Care Provider Unava ilable Encounter Details Date Type Department Care Team (Latest Contact Info) Description 03/03/2002 Outpatient Historical [facility] Family Medicine [place] [address] [phone] Ronald Woodall MD [address] [phone] ALLERGY, UNSPECIFIED (Primary Dx) Social History Tobacco Use Types Packs/Day Years Used Date Smoking Tobacco: Never Assessed Sex and Gender Information Value Date Recorded Sex Assigned at Not on file Legal Sex Male 5:51 AM WELD INSPECTOR Gender Identity Not on file Sexual Orientation Not on file documented as of this encounter Plan of Treatment Not on file documented as of this encounter Visit Diagnoses Diagnosis Allergy, unspecified not elsewhere classified- Primary documented in this encounter Care Teams Heritage Consultant Relationship Specialty Start Date End Date Non-Staff, Physician NO ADDRESS ON FILE PCP - General 07/17/07 08/14/20 documented as of this encounter
--- OUTSIDE RECORDS SUMMARY | 2025-05-20 10:24 | XMS_ITS | Encounter Summary ---
Author Organization [facility] Address [address] [facility] [place] [address] Care Team Providers Care Director Of Safety Name Role Phone Non-Staff, Physician Primary Care Provider Unava ilable Encounter Details Date Type Department Care Team (Latest Contact Info) Description 10/07/2003 Outpatient Historical [facility] Family Medicine- [place] [address] [place] [address] Melecio Lau NP NO ADDRESS ON FILE ACUTE BRONCHITIS (Primary Dx); ASTHMA UNSPECIFIED Social History Tobacco Use Types Packs/Day Years Used Date Smoking Tobacco: Never Assessed Sex and Gender Information Value Date Recorded Sex Assigned at Not on file Legal Sex Male 5:51 AM PRINCIPAL EMBEDDED SOFTWARE ENGINEER Gender Identity Not on file Sexual Orientation Not on file documented as of this encounter Plan of Treatment Not on file documented as of this encounter Visit Diagnoses Diagnosis Acute bronchitis- Primary Unspecified asthma(493.90) Unspecified asthma documented in this encounter Care Teams Director Of Safety Relationship Specialty Start Date End Date Non-Staff, Physician NO ADDRESS ON FILE PCP - General 07/17/07 08/14/20 documented as of this encounter
--- OUTSIDE RECORDS SUMMARY | 2025-05-20 10:24 | XMS_ITS | Encounter Summary ---
Author Organization [facility] Address [address] [place] [address] Care Team Providers Care Hedis Coordinator Name Role Phone Non-Staff, Physician Primary Care Provider Unava ilable Encounter Details Date Type Department Care Team (Latest Contact Info) Description 04/22/2003 Outpatient Historical [address] [phone] Ronald Woodall MD [address] [phone] CHRONIC SINUSITIS NOS (Primary Dx); OTITIS MEDIA NOS Social History Tobacco Use Types Packs/Day Years Used Date Smoking Tobacco: Never Assessed Sex and Gender Information Value Date Recorded Sex Assigned at Not on file Legal Sex Male 5:51 AM PROCESSING TECH Gender Identity Not on file Sexual Orientation Not on file documented as of this encounter Plan of Treatment Not on file documented as of this encounter Visit Diagnoses Diagnosis Unspecified sinusitis (chronic)- Primary Unspecified otitis media documented in this encounter Care Teams Hedis Coordinator Relationship Specialty Start Date End Date Non-Staff, Physician NO ADDRESS ON FILE PCP - General 07/17/07 08/14/20 documented as of this encounter
--- OUTSIDE RECORDS SUMMARY | 2025-05-20 10:24 | XMS_ITS | Encounter Summary ---
Author Organization [facility] Address [address] [place] [address] Care Team Providers Care Wing Mailer Machine Operator Name Role Phone Non-Staff, Physician Primary Care Provider Unava ilable Encounter Details Date Type Department Care Team (Latest Contact Info) Description 01/24/2002 Outpatient Historical [facility] Family Medicine [place] [address] [phone] Ronald Woodall MD [address] [facility] [address] [place] [phone] ALLERGY, UNSPECIFIED (Primary Dx) Social History Tobacco Use Types Packs/Day Years Used Date Smoking Tobacco: Never Assessed Sex and Gender Information Value Date Recorded Sex Assigned at Not on file Legal Sex Male 5:51 AM MOVEMENT ASSEMBLY FINAL INSPECTOR Gender Identity Not on file Sexual Orientation Not on file documented as of this encounter Plan of Treatment Not on file documented as of this encounter Visit Diagnoses Diagnosis Allergy, unspecified not elsewhere classified- Primary documented in this encounter Care Teams Wing Mailer Machine Operator Relationship Specialty Start Date End Date Non-Staff, Physician NO ADDRESS ON FILE PCP - General 07/17/07 08/14/20 documented as of this encounter
--- OUTSIDE RECORDS SUMMARY | 2025-05-20 10:24 | XMS_ITS | Encounter Summary ---
Author Organization [facility] Address [address] [place] [address] Care Team Providers Care Spring Bender Name Role Phone Non-Staff, Physician Primary Care Provider Unava ilable Encounter Details Date Type Department Care Team (Latest Contact Info) Description 12/05/2006 Outpatient Historical [facility] Family Medicine- [place] [address] [place] [address] Cristi Wilson, NO ADDRESS ON FILE Unspecified Orchitis and Epididymitis (Primary Dx) Social History Tobacco Use Types Packs/Day Years Used Date Smoking Tobacco: Never Assessed Sex and Gender Information Value Date Recorded Sex Assigned at Not on file Legal Sex Male 5:51 AM TOOL SUPERVISOR Gender Identity Not on file Sexual Orientation Not on file documented as of this encounter Plan of Treatment Not on file documented as of this encounter Visit Diagnoses Diagnosis Orchitis and epididymitis, unspecified- Primary documented in this encounter Care Teams Spring Bender Relationship Specialty Start Date End Date Non-Staff, Physician NO ADDRESS ON FILE PCP - General 07/17/07 08/14/20 documented as of this encounter
--- OUTSIDE RECORDS SUMMARY | 2025-05-20 10:24 | XMS_ITS | Encounter Summary ---
Author Organization [facility] Address [address] [place] [address] Care Team Providers Care Seismic Prospecting Supervisor Name Role Phone Non-Staff, Physician Primary Care Provider Unava ilable Encounter Details Date Type Department Care Team (Latest Contact Info) Description 07/14/2002 Outpatient Historical [address] [phone] Ronald Woodall MD [address] [phone] ACUTE URI NOS (Primary Dx) Social History Tobacco Use Types Packs/Day Years Used Date Smoking Tobacco: Never Assessed Sex and Gender Information Value Date Recorded Sex Assigned at Not on file Legal Sex Male 5:51 AM SCIENCE TECHNICIANS Gender Identity Not on file Sexual Orientation Not on file documented as of this encounter Plan of Treatment Not on file documented as of this encounter Visit Diagnoses Diagnosis Acute upper respiratory infections of unspecified site- Primary documented in this encounter Care Teams Seismic Prospecting Supervisor Relationship Specialty Start Date End Date Non-Staff, Physician NO ADDRESS ON FILE PCP - General 07/17/07 08/14/20 documented as of this encounter
--- OUTSIDE RECORDS SUMMARY | 2025-05-20 10:24 | XMS_ITS | Encounter Summary ---
Author Organization [facility] Address [address] [place] [address] Care Team Providers Care Fashion Director Party Plan Sales Name Role Phone Non-Staff, Physician Primary Care Provider Unava ilable Encounter Details Date Type Department Care Team (Latest Contact Info) Description 04/07/2002 Outpatient Historical [facility] Medicine [address] [phone] Cristi Wilson DO NO ADDRESS ON FILE ALLERGY, UNSPECIFIED (Primary Dx) Social History Tobacco Use Types Packs/Day Years Used Date Smoking Tobacco: Never Assessed Sex and Gender Information Value Date Recorded Sex Assigned at Not on file Legal Sex Male 5:51 AM SUPERVISOR FORCE ADJUSTMENT Gender Identity Not on file Sexual Orientation Not on file documented as of this encounter Plan of Treatment Not on file documented as of this encounter Visit Diagnoses Diagnosis Allergy, unspecified not elsewhere classified- Primary documented in this encounter Care Teams Fashion Director Party Plan Sales Relationship Specialty Start Date End Date Non-Staff, Physician NO ADDRESS ON FILE PCP - General 07/17/07 08/14/20 documented as of this encounter
--- OUTSIDE RECORDS SUMMARY | 2025-05-20 10:24 | XMS_ITS | Encounter Summary ---
Author Organization [facility] Address [address] [place] [address] Care Team Providers Care Threshing Department Supervisor Name Role Phone Non-Staff, Physician Primary Care Provider Unava ilable Encounter Details Date Type Department Care Team (Latest Contact Info) Description 09/23/2004 Outpatient Historical [facility] [place] [address] [facility] [address] [place] [phone] Ronald Woodall MD [address] [phone] ALLERGY, UNSPECIFIED (Primary Dx) Social History Tobacco Use Types Packs/Day Years Used Date Smoking Tobacco: Never Assessed Sex and Gender Information Value Date Recorded Sex Assigned at Not on file Legal Sex Male 5:51 AM SUPERVISOR MAINTENANCE AND CUSTODIANS Gender Identity Not on file Sexual Orientation Not on file documented as of this encounter Plan of Treatment Not on file documented as of this encounter Visit Diagnoses Diagnosis Allergy, unspecified not elsewhere classified- Primary documented in this encounter Care Teams Threshing Department Supervisor Relationship Specialty Start Date End Date Non-Staff, Physician NO ADDRESS ON FILE PCP - General 07/17/07 08/14/20 documented as of this encounter
--- OUTSIDE RECORDS SUMMARY | 2025-05-20 10:24 | XMS_ITS | Encounter Summary ---
Author Organization [facility] Address [address] [place] [address] Care Team Providers Care Sexual Health Physician Name Role Phone Non-Staff, Physician Primary Care Provider Unava ilable Encounter Details Date Type Department Care Team (Latest Contact Info) Description 07/20/2006 Outpatient Historical [facility] Medicine [address] [phone] Melecio Lau NP NO ADDRESS ON FILE Sprain of Neck (Primary Dx); Unspecified Concussion; Herpes Simplex without Mention of Complication Social History Tobacco Use Types Packs/Day Years Used Date Smoking Tobacco: Never Assessed Sex and Gender Information Value Date Recorded Sex Assigned at Not on file 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
--- OUTSIDE RECORDS SUMMARY | 2025-05-20 10:24 | XMS_ITS | Encounter Summary ---
Author Organization [facility] Address [address] [place] [address] Care Team Providers Care Ultrasound Tester Name Role Phone Non-Staff, Physician Primary Care Provider Unava ilable Encounter Details Date Type Department Care Team (Latest Contact Info) Description 03/12/2002 Outpatient Historical [facility] Medicine [address] [phone] Cristi Wilson DO NO ADDRESS ON FILE ALLERGY, UNSPECIFIED (Primary Dx) Social History Tobacco Use Types Packs/Day Years Used Date Smoking Tobacco: Never Assessed Sex and Gender Information Value Date Recorded Sex Assigned at Not on file 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
--- OUTSIDE RECORDS SUMMARY | 2025-05-20 10:24 | XMS_ITS | Encounter Summary ---
Author Organization [facility] Address [address] [facility] [place] [address] Care Team Providers Care Manager Of Software Name Role Phone Non-Staff, Physician Primary Care Provider Unava ilable Encounter Details Date Type Department Care Team (Late st Contact Info) Description 07/17/2006 Outpatient Historical [facility], [address] Headache (Primary Dx) Social History Tobacco Use Types Packs/Day Years Used Date Smoking Tobacco: Never Assessed Sex and Gender Information Value Date Recorded Sex Assigned at Not on file 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
--- OUTSIDE RECORDS SUMMARY | 2025-05-20 10:24 | XMS_ITS | Encounter Summary ---
Author Organization [facility] Address [address] [place] [address] Care Team Providers Care Concrete Curer Name Role Phone Non-Staff, Physician Primary Care Provider Unava ilable Encounter Details Date Type Department Care Team (Latest Contact Info) Description 04/09/2003 Outpatient Historical [facility] Medicine [address] [phone] Julia Pavon MD NO ADDRESS ON FILE FINGER INJURY NOS (Primary Dx); FX PHALANX, HAND NOS-CLOSE Social History Tobacco Use Types Packs/Day Years Used Date Smoking Tobacco: Never Assessed Sex and Gender Information Value Date Recorded Sex Assigned at Not on file 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
--- OUTSIDE RECORDS SUMMARY | 2025-05-20 10:24 | XMS_ITS | Encounter Summary ---
Author Organization [facility] Address [address] [place] [address] Care Team Providers Care Brass Reclaimer Name Role Phone Non-Staff, Physician Primary Care Provider Unava ilable Encounter Details Date Type Department Care Team (Latest Contact Info) Description 01/27/[address] [phone] Ronald Woodall MD [address] [phone] INFEC OTITIS EXTERNA NOS (Primary Dx); HERPES SIMPLEX NOS Social History Tobacco Use Types Packs/Day Years Used Date Smoking Tobacco: Never Assessed Sex and Gender Information Value Date Recorded Sex Assigned at Not on file 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
--- OUTSIDE RECORDS SUMMARY | 2025-05-20 10:24 | XMS_ITS | Encounter Summary ---
Author Organization [facility] Address [address] [place] [address] Care Team Providers Care Commercial Producer Name Role Phone Non-Staff, Physician Primary Care Provider Unava ilable Encounter Details Date Type Department Care Team (Latest Contact Info) Description 02/19/2002 Outpatient Historical [facility] Medicine [address] [phone] Cristi Wilson DO NO ADDRESS ON FILE ALLERGY, UNSPECIFIED (Primary Dx) Social History Tobacco Use Types Packs/Day Years Used Date Smoking Tobacco: Never Assessed Sex and Gender Information Value Date Recorded Sex Assigned at Not on file 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
--- OUTSIDE RECORDS SUMMARY | 2025-05-20 10:24 | XMS_ITS | Encounter Summary ---
Author Organization [facility] Address [address] [place] [address] Care Team Providers Care Glass Processing Worker Name Role Phone Non-Staff, Physician Primary Care Provider Unava ilable Encounter Details Date Type Department Care Team (Latest Contact Info) Description 10/24/2005 Outpatient Historical [facility] Medicine [address] [phone] Melecio Lau NP NO ADDRESS ON FILE Acute Sinusitis, Unspecified (Primary Dx); Acute Pharyngitis Social History Tobacco Use Types Packs/Day Years Used Date Smoking Tobacco: Never Assessed Sex and Gender Information Value Date Recorded Sex Assigned at Not on file Legal 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
--- OUTSIDE RECORDS SUMMARY | 2025-05-20 10:24 | XMS_ITS | Encounter Summary ---
Author Organization [facility] Address [address] [place] [address] Care Team Providers Care Dry House Worker Name Role Phone Non-Staff, Physician Primary Care Provider Unava ilable Encounter Details Date Type Department Care Team (Latest Contact Info) Description 03/20/2002 Outpatient Historical 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
--- OUTSIDE RECORDS SUMMARY | 2025-05-20 10:24 | XMS_ITS | Encounter Summary ---
Author Organization [facility] Address [address] [place] [address] Care Team Providers Care Time Clock Mechanic Name Role Phone Non-Staff, Physician Primary Care Provider Unava ilable Encounter Details Date Type Department Care Team (Latest Contact Info) Description 06/15/2003 Outpatient Historical [facility] Family Medicine- [place] [address] [place] [address] Ronald Woodall MD [address] [facility] [address] [place] [phone] ACUTE SINUSITIS NOS (Primary Dx); ACNE NEC Social History Tobacco Use Types Packs/Day Years Used Date Smoking Tobacco: Never Assessed Sex and Gender Information Value Date Recorded Sex Assigned at Not on file 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
--- OUTSIDE RECORDS SUMMARY | 2025-05-20 10:24 | XMS_ITS | Encounter Summary ---
Author Organization [facility] Address [address] [place] [address] Care Team Providers Care Reo Asset Manager Name Role Phone Unavailable Primary Care Provider Unavailabl e Encounter Details Date Type Department Care Team (Late st Contact Info) Description 05/12/2025 External Device Data ST[facility] ABSTRACTION Provider, Abstract NO ADDRESS ON FILE Social History Tobacco Use Types Packs/Day Years Used Date Smoking Tobacco: Former Cigarettes 0.3 Q uit: 06/25/2012 Smokeless Tobacco: Current Chew Comments:Quit smoking: one c an per day x 5 years Alcohol Use Standard Drinks/Week Comments Not Currently 4 (1 standard drink = 0.6 oz pur e alcohol) daily a lot Feeling Safe Answer Date Recorded Are you in a relationship wi th someone who hurts you emotionally and/or physically? No 10/08/2024 Food Insecurity Answer Date Recorded Social/Environmental Concerns No concerns Transportation Needs Answer Date Record ed Social/Environmental Concerns No concerns Housing Stability Answer Date Recorded Social/Environmental Concerns No concerns Utility Needs Answer Date Recorded Social/Environmental Concerns No concerns Sex and Gender Information Value Date Recorded Sex Assigned at Not on file Legal Sex Male 11:13 AM FIRST COOK Gender Identity Not on file Sexual Orientation Not on file documented as of this encounter Plan of Treatment Upcoming Encounters Date Type Department Care Team (Late st Contact Info) Description 07/08/2025 3:30 PM FIRST COOK Office Visit [facility] Gastroenterology- [place] [address] [facility] [facility] [address] [place] [address] Nikki James FNP [address] [facility] [address] [place] [address] documented as of this encounter Visit Diagnoses Not on filedocumented in this encounter
--- OUTSIDE RECORDS SUMMARY | 2025-05-20 10:24 | XMS_ITS | Encounter Summary ---
Author Organization [facility] Address [address] [place] [address] Care Team Providers Care Manager Telecom Name Role Phone Non-Staff, Physician Primary Care Provider Unava ilable Encounter Details Date Type Department Care Team (Latest Contact Info) Description 08/30/2004 Outpatient Historical [facility] Family Medicine- [place] [address] [place] [address] Alok Mello, PA NO ADDRESS ON FILE CHEST PAIN NOS (Primary Dx) Social History Tobacco Use Types Packs/Day Years Used Date Smoking Tobacco: Never Assessed Sex and Gender Information Value Date Recorded Sex Assigned at Not on file 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
--- OUTSIDE RECORDS SUMMARY | 2025-05-20 10:24 | XMS_ITS | Encounter Summary ---
Author Organization [facility] Address [address] [place] [address] Care Team Providers Care Raiser Helper Name Role Phone Non-Staff, Physician Primary Care Provider Unava ilable Encounter Details Date Type Department Care Team (Latest Contact Info) Description 01/13/2003 Outpatient Historical [address] [phone] Ronald Woodall MD [address] [phone] ALLERGY, UNSPECIFIED (Primary Dx) Social History Tobacco Use Types Packs/Day Years Used Date Smoking Tobacco: Never Assessed Sex and Gender Information Value Date Recorded Sex Assigned at Not on file 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
--- OUTSIDE RECORDS SUMMARY | 2025-05-20 10:24 | XMS_ITS | Encounter Summary ---
Author Organization [facility] Address [address] [place] [facility] [place] [address] Care Team Providers Care Manager Acute Name Role Phone Non-Staff, Physician Primary Care Provider Unava ilable Encounter Details Date Type Department Care Team (Latest Contact Info) Description 12/05/2006 Outpatient Historical [facility] Family Medicine- [address] [address] [place] [phone] Melecio Lau NP NO ADDRESS ON FILE Unspecified Orchitis and Epididymitis (Primary Dx); Unspecified Viral Warts Social History Tobacco Use Types Packs/Day Years Used Date Smoking Tobacco: Never Assessed Sex and Gender Information Value Date Recorded Sex Assigned at Not on file 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
--- OUTSIDE RECORDS SUMMARY | 2025-05-20 10:24 | XMS_ITS | Encounter Summary ---
Author Organization [facility] Address [address] [place] [address] Care Team Providers Care Timber Bucker Name Role Phone Non-Staff, Physician Primary Care Provider Unava ilable Encounter Details Date Type Department Care Team (Latest Contact Info) Description 01/03/2002 Outpatient Historical [facility] Medicine [address] [phone] Cristi Wilson DO NO ADDRESS ON FILE ALLERGY, UNSPECIFIED (Primary Dx) Social History Tobacco Use Types Packs/Day Years Used Date Smoking Tobacco: Never Assessed Sex and Gender Information Value Date Recorded Sex Assigned at Not on file 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
--- OUTSIDE RECORDS SUMMARY | 2025-05-20 10:24 | XMS_ITS | Encounter Summary ---
Author Organization [facility] Address [address] [place] [address] Care Team Providers Care Pcb Design Engineer Name Role Phone Non-Staff, Physician Primary Care Provider Unayunier vannable Encounter Details Date Type Department Care Team (Latest Contact Info) Description 03/21/2002 Outpatient Historical [facility] Family Medicine- [place] [address] [place] [address] Julia Pavon MD NO ADDRESS ON FILE NONINFEC GASTROENTERIT NEC (Primary Dx) Social History Tobacco Use Types Packs/Day Years Used Date Smoking Tobacco: Never Assessed Sex and Gender Information Value Date Recorded Sex Assigned at Not on file 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
--- OUTSIDE RECORDS SUMMARY | 2025-05-20 10:24 | XMS_ITS | Encounter Summary ---
Author Organization [facility] Address [address] [place] [address] Care Team Providers Care Hand Hardener Name Role Phone Non-Staff, Physician Primary Care Provider Unava ilable Encounter Details Date Type Department Care Team (Latest Contact Info) Description 05/07/2002 Outpatient Historical [facility] Medicine [address] [phone] Cristi Wilson DO NO ADDRESS ON FILE ALLERGY, UNSPECIFIED (Primary Dx) Social History Tobacco Use Types Packs/Day Years Used Date Smoking Tobacco: Never Assessed Sex and Gender Information Value Date Recorded Sex Assigned at Not on file Legal Sex Male 5:51 AM UTILITY HAND Gender Identity Not on file Sexual Orientation Not on file documented as of this encounter Plan of Treatment Not on file documented as of this encounter Visit Diagnoses Diagnosis Allergy, unspecified not elsewhere classified- Primary documented in this encounter Care Teams Hand Hardener Relationship Specialty Start Date End Date Non-Staff, Physician NO ADDRESS ON FILE PCP - General 07/17/07 08/14/20 documented as of this encounter
--- OUTSIDE RECORDS SUMMARY | 2025-05-20 10:24 | XMS_ITS | Encounter Summary ---
Author Organization [facility] Address [address] [place] [address] Care Team Providers Care Companion Caregiver Name Role Phone Non-Staff, Physician Primary Care Provider Unava ilable Encounter Details Date Type Department Care Team (Latest Contact Info) Description 09/20/2004 Outpatient Historical [facility]- [address] [phone] Ronald Woodall MD [address] [phone] ACUTE BRONCHITIS (Primary Dx) Social History Tobacco Use Types Packs/Day Years Used Date Smoking Tobacco: Never Assessed Sex and Gender Information Value Date Recorded Sex Assigned at Not on file 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
--- OUTSIDE RECORDS SUMMARY | 2025-05-20 10:24 | XMS_ITS | Clinical Summary ---
Author Organization [facility] Address [address] [place] [address] Care Team Providers Care Multiple Tube Winding Machine Operator Name Role Phone Unavailable Primary Care Provider Unavailabl e Allergies Active Allergy Reactions Criticality Noted Date Comments Penicillins Hives High 04/15/2008 Sulfa (Sulfonamide Antibiotics) Hives High 03/26 Medications No known medications Active Problems Problem Noted Date Diagnosed Date Anxiety state 11/26/2009 Reactive airway disease 04/15/2008 Immunizations Immunization Administration Dates Next Due (ADACEL/BOOSTRIX)(10 YR UP) TDAP VACCINE, 0.5ML, IM 08/15/2020 (TDVAX)(7 YRS UP) TETANUS AN D DIPHTHERIA TOXOIDS, ADSORBED (2 LF OF TETANUS TOXOID AND 2 LF OF DIPHTHERIA TOXOID), 0.5ML (PF), IM 02/08/2004 Family History Medical History Relation Name Comments Healthy Father Asthma Maternal Grandfather Respiratory Disease Maternal Grandfather Healthy Maternal Grandmother Healthy Mother Breast Cancer Other p aunt Healthy Paternal Grandfather Heart Disease Paternal Grandmother Colon Cancer Neg Hx Relation Name Status Comments Father Maternal Grandfather Maternal Grandmother Mother Other p aunt Alive Paternal Grandfather Paternal Grandmother Social History Tobacco Use Types Packs/Day Years Used Date Smoking Tobacco: Former Cigarettes 3 0 06/25/2009 - 06/25/2012 Smokeless Tobacco: Current Chew Tobacco Cessation:Ready to Q uit: No; Counseling Given: Yes Comments:one can per day x 5 years Alcohol Use Standard Drinks/Week Comments Yes 0 (1 standard drink = 0.6 oz pur e alcohol) , chew 1 can/day Sex and Gender Information Value Date Recorded Sex Assigned at Not on file Legal Sex Male 5:51 AM 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 Gender Identity Not on file Sexual Orientation Not on file Last Filed Vital Signs Vital Sign Reading Time Taken Comments Blood Pressure 125/87 08/15/2020 12:58 AM MAINTENANCE TEAM MEMBER Pulse 99 08/15/2020 12:58 AM MAINTENANCE TEAM MEMBER Temperature 36.7 C (98.1 F) 08/15/2020 12:58 AM MAINTENANCE TEAM MEMBER Respiratory Rate 18 08/15/2020 12:58 AM MAINTENANCE TEAM MEMBER Oxygen Saturation 99% 08/15/2020 12:58 AM MAINTENANCE TEAM MEMBER Inhaled Oxygen Concentration - - Weight 68 kg (150 lb) 08/15/2020 12:58 AM MAINTENANCE TEAM MEMBER Height 172.7 cm (5' 8 ) 08/15/2020 12:58 AM MAINTENANCE TEAM MEMBER Body Mass Index 22.81 08/15/2020 12:58 AM MAINTENANCE TEAM MEMBER Plan of Treatment Health Maintenance Due Date Last Done Comments HEPATITIS B VACCINES (1 of 3 - 19+ 3-dose series) 2008 HPV VACCINES (1 - 3-dose SCDM series) 2016 INFLUENZA VACCINE (#1) 2025 DTAP/TDAP/TD VACCINES (3 - Td or Tdap) 08/15/2030, 02/08/2004
--- OUTSIDE RECORDS SUMMARY | 2025-05-20 10:24 | XMS_ITS | Encounter Summary ---
Author Organization [facility] Address [address] [place] [address] Care Team Providers Care Early Interventionist Name Role Phone Non-Staff, Physician Primary Care Provider Unava ilable Encounter Details Date Type Department Care Team (Latest Contact Info) Description 09/17/2002 Outpatient Historical [facility] Medicine [address] [phone] Cristi Wilson DO NO ADDRESS ON FILE ABDOMINAL PAIN UNSPEC SITE (Primary Dx) Social History Tobacco Use Types Packs/Day Years Used Date Smoking Tobacco: Never Assessed Sex and Gender Information Value Date Recorded Sex Assigned at Not on file 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
--- OUTSIDE RECORDS SUMMARY | 2025-05-20 10:24 | XMS_ITS | Encounter Summary ---
Author Organization [facility] Address [address] [place] [address] Care Team Providers Care Patent Prosecution Attorney Name Role Phone Non-Staff, Physician Primary Care Provider Unava ilable Encounter Details Date Type Department Care Team (Latest Contact Info) Description 07/29/2003 Outpatient Historical [facility] Family Medicine- [address] [place] [phone] Cristi Wilson, NO ADDRESS ON FILE ACUTE PHARYNGITIS (Primary Dx) Social History Tobacco Use Types Packs/Day Years Used Date Smoking Tobacco: Never Assessed Sex and Gender Information Value Date Recorded Sex Assigned at Not on file Legal Sex Male 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
--- OUTSIDE RECORDS SUMMARY | 2025-05-20 10:24 | XMS_ITS | Encounter Summary ---
Author Organization [facility] Address [address] [place] [address] Care Team Providers Care Hearing Aid Repair Technician Name Role Phone Non-Staff, Physician Primary Care Provider Unava ilable Encounter Details Date Type Department Care Team (Latest Contact Info) Description 11/28/2001 Outpatient Historical [facility] Medicine [address] [phone] Julia Pavon MD NO ADDRESS ON FILE ALLERGY, UNSPECIFIED (Primary Dx) Social History Tobacco Use Types Packs/Day Years Used Date Smoking Tobacco: Never Assessed Sex and Gender Information Value Date Recorded Sex Assigned at Not on file 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
--- OUTSIDE RECORDS SUMMARY | 2025-05-20 10:24 | XMS_ITS | Encounter Summary ---
Author Organization [facility] Address [address] [place] [address] Care Team Providers Care Marketing Engineer Name Role Phone Non-Staff, Physician Primary Care Provider Unava ilable Encounter Details Date Type Department Care Team (Latest Contact Info) Description 04/28/2002 Outpatient Historical [facility] Family Medicine [place] [address] [phone] Ronald Woodall MD [address] [phone] ALLERGY, UNSPECIFIED (Primary Dx) Social History Tobacco Use Types Packs/Day Years Used Date Smoking Tobacco: Never Assessed Sex and Gender Information Value Date Recorded Sex Assigned at Not on file 

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
--- OUTSIDE RECORDS SUMMARY | 2025-05-20 10:24 | XMS_ITS | Encounter Summary ---
Author Organization [facility] Address [address] [place] [address] Care Team Providers Care Resin Filterer Name Role Phone Non-Staff, Physician Primary Care Provider Unava ilable Encounter Details Date Type Department Care Team (Latest Contact Info) Description 07/20/2004 Outpatient Historical [facility] [address] [phone] Ronald Woodall MD [address] [phone] CHRONIC SINUSITIS NOS (Primary Dx) Social History Tobacco Use Types Packs/Day Years Used Date Smoking Tobacco: Never Assessed Sex and Gender Information Value Date Recorded Sex Assigned at Not on file 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
--- OUTSIDE RECORDS SUMMARY | 2025-05-20 10:24 | XMS_ITS | Encounter Summary ---
Author Organization [facility] Address [address] [place] [address] Care Team Providers Care Electrical Maintenance Worker Name Role Phone Non-Staff, Physician Primary Care Provider Unava ilable Encounter Details Date Type Department Care Team (Latest Contact Info) Description 10/15/2006 Outpatient Historical [facility] Medicine [address] [phone] Melecio Lau NP NO ADDRESS ON FILE Acute Pharyngitis (Primary Dx); Acute Sinusitis, Unspecified; Unspecified Viral Warts Social History Tobacco Use Types Packs/Day Years Used Date Smoking Tobacco: Never Assessed Sex and Gender Information Value Date Recorded Sex Assigned at Not on file Legal Sex Male 5:51 AM MANAGER RFID Gender Identity Not on file Sexual Orientation Not on file documented as of this encounter Plan of Treatment Not on file documented as of this encounter Visit Diagnoses Diagnosis Acute pharyngitis- Primary Acute sinusitis, unspecified Viral warts, unspecified documented in this encounter Care Teams Electrical Maintenance Worker Relationship Specialty Start Date End Date Non-Staff, Physician NO ADDRESS ON FILE PCP - General 07/17/07 08/14/20 documented as of this encounter
--- OUTSIDE RECORDS SUMMARY | 2025-05-20 10:24 | XMS_ITS | Encounter Summary ---
Author Organization [facility] Address [address] [place] [address] Care Team Providers Care Respiratory Therapy Aide Name Role Phone Non-Staff, Physician Primary Care Provider Unava ilable Encounter Details Date Type Department Care Team (Latest Contact Info) Description 12/25/2001 Outpatient Historical [facility] Medicine [address] [phone] Julia Pavon MD NO ADDRESS ON FILE ALLERGY, UNSPECIFIED (Primary Dx) Social History Tobacco Use Types Packs/Day Years Used Date Smoking Tobacco: Never Assessed Sex and Gender Information Value Date Recorded Sex Assigned at Not on file 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
--- OUTSIDE RECORDS SUMMARY | 2025-05-20 10:24 | XMS_ITS | Encounter Summary ---
Author Organization [facility] Address [address] [place] [address] Care Team Providers Care Route Cdl Driver Name Role Phone Non-Staff, Physician Primary Care Provider Unava ilable Encounter Details Date Type Department Care Team (Latest Contact Info) Description 02/07/2005 [facility] [place] [address] [facility] [address] [place] [phone] Ronald Woodall MD [address] [phone] ACUTE URI NOS (Primary Dx) Social History Tobacco Use Types Packs/Day Years Used Date Smoking Tobacco: Never Assessed Sex and Gender Information Value Date Recorded Sex Assigned at Not on file 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
--- OUTSIDE RECORDS SUMMARY | 2025-05-20 10:25 | XMS_ITS | Encounter Summary ---
Author Organization [facility] Address [address] [place] [address] Care Team Providers Care Marketing Research Intern Name Role Phone Non-Staff, Physician Primary Care Provider Unava ilable Encounter Details Date Type Department Care Team (Latest Contact Info) Description 11/22/2001 Outpatient Historical [facility] Family Medicine [address] [phone] Ronald Woodall MD [address] [phone] ALLERGY, UNSPECIFIED (Primary Dx) Social History Tobacco Use Types Packs/Day Years Used Date Smoking Tobacco: Never Assessed Sex and Gender Information Value Date Recorded Sex Assigned at Not on file 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
--- OUTSIDE RECORDS SUMMARY | 2025-05-20 10:25 | XMS_ITS | Encounter Summary ---
Author Organization [facility] Address [address] [place] [address] Care Team Providers Care Candy Spreader Name Role Phone Non-Staff, Physician Primary Care Provider Unava ilable Encounter Details Date Type Department Care Team (Latest Contact Info) Description 11/14/2001 Outpatient Historical [facility] Medicine [address] [phone] Julia Pavon MD NO ADDRESS ON FILE ALLERGY, UNSPECIFIED (Primary Dx) Social History Tobacco Use Types Packs/Day Years Used Date Smoking Tobacco: Never Assessed Sex and Gender Information Value Date Recorded Sex Assigned at Not on file 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
--- OUTSIDE RECORDS SUMMARY | 2025-05-20 10:25 | XMS_ITS | Encounter Summary ---
Author Organization [facility] Address [address] [place] [address] Care Team Providers Care Sports Broadcasting Internship Name Role Phone Non-Staff, Physician Primary Care Provider Unava ilable Encounter Details Date Type Department Care Team (Latest Contact Info) Description 08/24/1999 Outpatient Historical [facility] Family Medicine- [place] [address] [place] [address] Carolina Valderrama NO ADDRESS ON FILE Epistaxis (Primary Dx); Acute tonsillitis Social History Tobacco Use Types Packs/Day Years Used Date Smoking Tobacco: Never Assessed Sex and Gender Information Value Date Recorded Sex Assigned at Not on file 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
--- OUTSIDE RECORDS SUMMARY | 2025-05-20 10:25 | XMS_ITS | Encounter Summary ---
Author Organization [facility] Address [address] [place] [address] Care Team Providers Care Linseed Oil Temperer Name Role Phone Non-Staff, Physician Primary Care Provider Unava ilable Encounter Details Date Type Department Care Team (Latest Contact Info) Description 05/28/2000 Outpatient Historical [facility] Medicine [address] [phone] Cristi Wilson, DO NO ADDRESS ON FILE Observation for unspecified suspected condition (Primary Dx) Social History Tobacco Use Types Packs/Day Years Used Date Smoking Tobacco: Never Assessed Sex and Gender Information Value Date Recorded Sex Assigned at Not on file 

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
--- OUTSIDE RECORDS SUMMARY | 2025-05-20 10:25 | XMS_ITS | Encounter Summary ---
Author Organization [facility] Address [address] [place] [address] Care Team Providers Care Data Management Specialist Name Role Phone Non-Staff, Physician Primary Care Provider Unava ilable Encounter Details Date Type Department Care Team (Latest Contact Info) Description 11/09/2000 Outpatient Historical [address] [phone] Ronald Woodall MD [address] [phone] Acute upper respiratory infections of unspecified site (Primary Dx) Social History Tobacco Use Types Packs/Day Years Used Date Smoking Tobacco: Never Assessed Sex and Gender Information Value Date Recorded Sex Assigned at Not on file Legal 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
--- OUTSIDE RECORDS SUMMARY | 2025-05-20 10:25 | XMS_ITS | Encounter Summary ---
Author Organization [facility] Address [address] [place] [address] Care Team Providers Care Director Of Accounts Receivable Name Role Phone Non-Staff, Physician Primary Care Provider Unava ilable Encounter Details Date Type Department Care Team (Latest Contact Info) Description 08/01/1999 Outpatient Historical [facility] Family Medicine [place] [address] [facility] [address] [place] [phone] Ronald Woodall MD [address] [phone] Acute tonsillitis (Primary Dx) Social History Tobacco Use Types Packs/Day Years Used Date Smoking Tobacco: Never Assessed Sex and Gender Information Value Date Recorded Sex Assigned at Not on file 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
--- OUTSIDE RECORDS SUMMARY | 2025-05-20 10:25 | XMS_ITS | Encounter Summary ---
Author Organization [facility] Address [address] [place] [address] Care Team Providers Care Shift Manager Name Role Phone Non-Staff, Physician Primary Care Provider Unava ilable Encounter Details Date Type Department Care Team (Latest Contact Info) Description 08/20/2000 Outpatient Historical [address] [phone] Ronald Woodall MD [address] [phone] Acute upper respiratory infections of unspecified site (Primary Dx) Social History Tobacco Use Types Packs/Day Years Used Date Smoking Tobacco: Never Assessed Sex and Gender Information Value Date Recorded Sex Assigned at Not on file 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
--- OUTSIDE RECORDS SUMMARY | 2025-05-20 10:25 | XMS_ITS | Encounter Summary ---
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
--- OUTSIDE RECORDS SUMMARY | 2025-05-20 10:25 | XMS_ITS | Encounter Summary ---
Author Organization [facility] Address [address] [place] [address] Care Team Providers Care Decay Control Operator Name Role Phone Non-Staff, Physician Primary Care Provider Unava ilable Encounter Details Date Type Department Care Team (Latest Contact Info) Description 04/12/1999 Outpatient Historical [facility] Medicine [address] [phone] Cristi Wilson, DO NO ADDRESS ON FILE Acute sinusitis, unspecified (Primary Dx) Social History Tobacco Use Types Packs/Day Years Used Date Smoking Tobacco: Never Assessed Sex and Gender Information Value Date Recorded Sex Assigned at Not on file 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
--- OUTSIDE RECORDS SUMMARY | 2025-05-20 10:25 | XMS_ITS | Encounter Summary ---
Author Organization [facility] Address [address] [place] [address] Care Team Providers Care Farmer [employer] Name Role Phone Non-Staff, Physician Primary Care Provider Unava ilable Encounter Details Date Type Department Care Team (Latest Contact Info) Description 09/24/2000 Outpatient Historical [address] [phone] Ronald Woodall MD [address] [phone] Acute upper respiratory infections of unspecified site (Primary Dx) Social History Tobacco Use Types Packs/Day Years Used Date Smoking Tobacco: Never Assessed Sex and Gender Information Value Date Recorded Sex Assigned at Not on file 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
--- OUTSIDE RECORDS SUMMARY | 2025-05-20 10:25 | XMS_ITS | Encounter Summary ---
Author Organization [facility] Address [address] [place] [address] Care Team Providers Care Medication Specialist Name Role Phone Non-Staff, Physician Primary Care Provider Unava ilable Encounter Details Date Type Department Care Team (Latest Contact Info) Description 10/19/1998 Outpatient Historical 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
--- OUTSIDE RECORDS SUMMARY | 2025-05-20 10:25 | XMS_ITS | Encounter Summary ---
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
--- OUTSIDE RECORDS SUMMARY | 2025-05-20 10:25 | XMS_ITS | Encounter Summary ---
Author Organization [facility] Address [address] [place] [address] Care Team Providers Care Quality Assurance Clerk Name Role Phone Non-Staff, Physician Primary Care Provider Unava ilable Encounter Details Date Type Department Care Team (Latest Contact Info) Description 10/11/2001 Outpatient Historical [facility]- [address] [phone] Ronald Woodall MD [address] [phone] ALLERGY, UNSPECIFIED (Primary Dx) Social History Tobacco Use Types Packs/Day Years Used Date Smoking Tobacco: Never Assessed Sex and Gender Information Value Date Recorded Sex Assigned at Not on file 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
--- OUTSIDE RECORDS SUMMARY | 2025-05-20 10:25 | XMS_ITS | Encounter Summary ---
Author Organization [facility] Address [address] [place] [address] Care Team Providers Care Salt Maker Name Role Phone Non-Staff, Physician Primary Care Provider Unava ilable Encounter Details Date Type Department Care Team (Latest Contact Info) Description 01/31/2002 Outpatient Historical [facility] Family Medicine [place] [address] [phone] Ronald Woodall MD [address] [facility] [address] [place] [phone] ALLERGY, UNSPECIFIED (Primary Dx) Social History Tobacco Use Types Packs/Day Years Used Date Smoking Tobacco: Never Assessed Sex and Gender Information Value Date Recorded Sex Assigned at Not on file 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
[2025-05-20] MEDS: pantoprazole 40 mg SDV IVP (10:45)
--- NOTE | 2025-05-20 10:46 | PC.NURSE ---
PT STATES HE HAS BEEN EVALUATED FOR PANCREATITIS BEFORE AND STATES HE CONSUMES ALCOHOL FREQUENTLY. PT DENIES DX OF PANCREATITIS
[2025-05-20 10:50] LABS: Hematocrit 46.8 % (37-53); Hemoglobin 17.30 g/dL (11.27-16.99); Mean Corpuscular HGB Conc 37.0 g/dL (30-55); Mean Corpuscular Hemoglobin 31.0 pg (27-33); Mean Corpuscular Volume 83.9 fl (82-101); Nucleated Red Blood Cells % 0 %; Platelet Count 162 10^3/cmm (157-399); Red Blood Count 5.58 10^6/uL (3.85-5.65); White Blood Count 7.78 10^3/uL (3.29-11.43)
[2025-05-20 11:07] LABS: Alanine Aminotransferase 22 U/L (0-41); Albumin Level 4.2 g/dL (3.5-5.2); Alkaline Phosphatase 144 U/L (40-130); Anion Gap 18.7 (5-19); Aspartate Amino Transferase 36 U/L (0-40); Blood Urea Nitrogen 5 mg/dL (6-20); Calcium 8.9 mg/dL (8.5-10.5); Carbon Dioxide 30 mmol/L (22-29); Chloride 90 mmol/L (98-107); Globulin 2.0 g/dL (1.3-4.6); Glucose 130 mg/dL (65-115); Lipase 36 U/L (13-60); Osmolality Calculated 281 mOsm/kg (285-295); Sodium 136 mmol/L (136-145); Total Protein 6.2 g/dL (6.6-8.7)
[2025-05-20 11:08] LABS: Lactic Sepsis W/Reflex 2.6 mmol/L (0.5-2.2)
[2025-05-20 11:13] LABS: Alcohol Level < 10 mg/dL (0-10)
[2025-05-20 11:14] LABS: Potassium 2.7 mmol/L (3.5-5.1)
--- NOTE | 2025-05-20 11:25 | CTR_ITS ---
PROCEDURE INFORMATION: Exam: CT Abdomen And Pelvis With Contrast Exam date and time: 05/20/2025 11:36 AM Age: 34 years old Clinical indication: Abdominal pain TECHNIQUE: Imaging protocol: Computed tomography of the abdomen and pelvis with contrast. Radiation optimization: All CT scans at this facility use at least one of these dose optimization techniques: automated exposure control; mA and/or kV adjustment per patient size (includes targeted exams where dose is matched to clinical indication); or iterative reconstruction. Contrast material: [id number]; Contrast volume: 100 ml; Contrast route: INTRAVENOUS (IV); COMPARISON: 1. CT abdomen pelvis w con* [id number] 12/03/2018 1:[address] abdomen pelvis w con* [id number] 06/27/2018 6:46 PM RADIATION DOSE METRICS: Total DLP (mGy-cm): 468.3 FINDINGS: Liver: The liver is diffusely decreased in density, compatible with hepatic steatosis. No liver mass. Gallbladder and biliary ducts: Post cholecystectomy. There is no evidence of biliary ductal dilation. Pancreas: The pancreas is normal. No mass. Spleen: Borderline splenomegaly. No spleen mass. Adrenal glands: The adrenal glands are normal. Kidneys and ureters: No mass or hydronephrosis. Stomach and bowel: Bowel caliber is normal. No paracolonic inflammatory changes. Portions of the colon are collapsed and mural thickening could be present. Appendix: Normal appendix. Intraperitoneal space: Unremarkable. No free air. No significant fluid collection. Vasculature: Aortic caliber is normal. Lymph nodes: Largest aortocaval node measures 9 mm. No enlarged lymph nodes. Urinary bladder: No focal wall thickening of the urinary bladder. Reproductive: 7 mm hypodensity in the posterior prostate is unchanged from 2019. 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 No acute osseous abnormality. Soft tissues: Unremarkable. CT/CT abdomen pelvis w con* [id number] IMPRESSION: 1. Portions of the colon are collapsed and mural thickening could be present. Correlate clinically for the possibility of colitis. 2. Hepatic steatosis. 3. No acute disease otherwise identified.
[2025-05-20] MEDS: potassium chloride oral liq 20 mEq/15 mL UDC 40 MEQ PO (11:27)
[2025-05-20 12:31] LABS: Reflex Lactate Order REFLEX LACTIC ORDERD
[2025-05-20 12:53] VITALS: BP 141/90; PULSE 86; RESP 18; O2SAT 99
[2025-05-20 13:38] LABS: Glucose Urine UA Negative (Normal); Nitrate Urine Negative (Negative)
[2025-05-20 13:44] LABS: Specific Gravity, Urine 1.073 (1.005-1.030)
== END 2025-05-20 12:58 | disposition home or self-care (01) ==
PROVIDERS: Emergency Provider Emergency Medicine; PCP Nurse Practitioner Family
DX: K29.70 Gastritis, unspecified, without bleeding (principal); Z72.0 Tobacco use
CPT/HCPCS: 36415; 74177; 80053; 80307; 81001; 83605; 83690; 85025; 86140; 96374; 99285; J2470; J9999